=== PATIENT | female | born 1950 ===

== ENCOUNTER 2022-08-26 13:28 | Inpatient (IN) | payer BC ==
[~2022-08-26] VITALS: Ht 172.7 cm; Wt 45.8 kg
[2022-08-26] MEDS ORDERED: MORPHINE SULFATE INJ 2 MG/ml SYRG IV PRN (20:30)
[2022-08-26] MEDS ORDERED: NITROGLYCERIN 0.4 MG SL TAB SL PRN (20:30)
[2022-08-26] MEDS ORDERED: VANCOMYCIN PER PHARMACY 0 MG IV SCH (20:30)
[2022-08-26] MEDS ORDERED: DOCUSATE SOD 100 MG CAP PO PRN (20:30)
[2022-08-26] MEDS ORDERED: ACETAMINOPHEN 325 MG TAB PO PRN (20:30)
[2022-08-26] MEDS ORDERED: ONDANSETRON HCL 4 MG/2 ML VIAL IV PRN (20:30)
[2022-08-26] MEDS ORDERED: DEXTROSE (50%) 50ML SYRG IV PRN (20:30)
[2022-08-26] MEDS ORDERED: MIRT1TAB PO (20:35)
[2022-08-26] MEDS ORDERED: QUET50TA27 PO (20:35)
[2022-08-26] MEDS ORDERED: ATOR40TA52 PO (20:35)
[2022-08-26] MEDS ORDERED: cefTRIAXone 1GM/50ML D5W 50 ML IV SCH (21:00)
[2022-08-26] MEDS: ACCU-CHEK COMFORT CURVE STRIP VI SCH (21:39)
[2022-08-26] MEDS: SODIUM CHLORIDE 0.9% 1,000 ML IV SCH (21:39)
[2022-08-26] MEDS: InsuLIN REG 1unit/0.01ml Soln (100units/ml) SC SCH (21:40)
[2022-08-26 22:00] VITALS: BP 108/56
[2022-08-26] MEDS ORDERED: VANCOMYCIN 1GM/250ML 250 ML IV ONE (22:00)
[2022-08-27 05:00] VITALS: BP 136/66
[2022-08-27 05:48] LABS: Basophils # (auto) 0.1 10 ^3/uL (0-0.2); Eosinophils # (auto) 0.1 10 ^3/uL (0-0.8); Hematocrit 29.7 % (36.0-46.0); Hemoglobin 9.2 g/dL (12.2-16.2)
[2022-08-27 05:51] LABS: Basophils % (auto) 0.5 % (0.0-2.0); Eosinophils % (auto) 0.7 % (0.0-7.0); Lymphocytes # (auto) 1.3 10 ^3/uL (0.4-5.4); Lymphocytes % (auto) 6.3 % (10.0-50.0); Mean Corpuscular Hemoglobin 26.5 pg (28.0-32.0); Mean Corpuscular Hgb Conc. 31.2 g/dL (32.0-36.0); Monocytes # (auto) 1.8 10 ^3/uL (0-1.3); Neutrophils # (auto) 16.8 10 ^3/uL (1.6-8.6); Neutrophils % (auto) 83.5 % (37.0-80.0); Red Blood Cells 3.49 10^6/uL (4.0-5.20); Red Cell Distribution Width 14.3 % (11.8-14.3); White Blood Cell 20.1 10^3/uL (4.4-10.8)
[2022-08-27 06:07] LABS: Calcium 8.9 mg/dL (8.5-10.1); Potassium 4.4 mmol/L (3.5-5.1)
[2022-08-27 06:09] LABS: BUN/Creatinine Ratio 37.3 (10.0-20.0)
[2022-08-27] MEDS: ACCU-CHEK COMFORT CURVE STRIP VI SCH ×4 (06:11→21:37)
[2022-08-27] MEDS: InsuLIN REG 1unit/0.01ml Soln (100units/ml) SC SCH ×4 (06:13→22:00)
[2022-08-27 08:33] VITALS: BP 138/68
[2022-08-27] MEDS ORDERED: cefTRIAXone 1GM/50ML D5W 50 ML IV SCH (09:00)
[2022-08-27] MEDS: SODIUM CHLORIDE 0.9% 1,000 ML IV SCH (09:50)
[2022-08-27] MEDS: MEROPENEM 500MG IVPB 50 ML IV SCH ×2 (10:41→22:44)
[2022-08-27 12:21] VITALS: BP 144/68
[2022-08-27 16:01] LABS: Protein, Urine 42.9 mg/dL (0.0-11.9)
[2022-08-27 16:05] LABS: Urine Amorphous Crystal FEW /hpf (None Seen); Urine Bacteria NONE SEEN /hpf (None Seen); Urine Blood 1+ /uL (Negative); Urine Hyaline Cast FEW /lpf (0 - 2); Urine Mucus FEW (None Seen); Urine WBC 274 /hpf (0 - 5)
[2022-08-27 16:28] VITALS: BP 111/81
[2022-08-27] MEDS: Ensure Enlive Strawberry 8oz Bottle PO SCH (18:38)
[2022-08-27] MEDS: SODIUM BICARBONATE 50ML VIAL 50 ML in SOD CHL 0.45% 1,000 ML IV SCH (19:25)
[2022-08-27 22:00] VITALS: BP 110/46
[2022-08-28 05:00] VITALS: BP 112/50
[2022-08-28] MEDS: ACCU-CHEK COMFORT CURVE STRIP VI SCH ×4 (06:01→21:51)
[2022-08-28] MEDS: InsuLIN REG 1unit/0.01ml Soln (100units/ml) SC SCH ×4 (06:01→21:50)
[2022-08-28 06:13] LABS: Basophils # (auto) 0.1 10 ^3/uL (0-0.2); Basophils % (auto) 0.7 % (0.0-2.0); Eosinophils # (auto) 0.4 10 ^3/uL (0-0.8); Eosinophils % (auto) 2.2 % (0.0-7.0); Hematocrit 28.2 % (36.0-46.0); Hemoglobin 8.7 g/dL (12.2-16.2); Lymphocytes % (auto) 11.7 % (10.0-50.0); Mean Corpuscular Hemoglobin 26.7 pg (28.0-32.0); Mean Corpuscular Hgb Conc. 30.7 g/dL (32.0-36.0); Monocytes # (auto) 1.6 10 ^3/uL (0-1.3); Monocytes % (auto) 9.1 % (0.0-12.0); Neutrophils # (auto) 13.3 10 ^3/uL (1.6-8.6); Neutrophils % (auto) 76.3 % (37.0-80.0); Red Blood Cells 3.25 10^6/uL (4.0-5.20); Red Cell Distribution Width 14.1 % (11.8-14.3); White Blood Cell 17.5 10^3/uL (4.4-10.8)
[2022-08-28 06:41] LABS: Calcium 8.9 mg/dL (8.5-10.1); Potassium 4.2 mmol/L (3.5-5.1)
[2022-08-28] MEDS: Ensure Enlive Strawberry 8oz Bottle PO SCH ×3 (08:30→18:00)
[2022-08-28 09:51] VITALS: BP 98/59
[2022-08-28] MEDS: MEROPENEM 500MG IVPB 50 ML IV SCH ×2 (10:13→21:50)
[2022-08-28] MEDS: SODIUM BICARBONATE 50ML VIAL 50 ML in SOD CHL 0.45% 1,000 ML IV SCH ×4 (10:14→21:00)
[2022-08-28 12:29] VITALS: BP 101/62
[2022-08-28 16:07] VITALS: BP 111/55
[2022-08-28] MEDS ORDERED: VANCOMYCIN 1GM/250ML 250 ML IV ONE (18:00)
[2022-08-28 21:30] VITALS: BP 132/83
[2022-08-29 06:49] LABS: Lymphocytes # (auto) 2.3 10 ^3/uL (0.4-5.4); Neutrophils # (auto) 11.6 10 ^3/uL (1.6-8.6); Red Cell Distribution Width 14.1 % (11.8-14.3)
[2022-08-29 06:52] LABS: Basophils # (auto) 0.1 10 ^3/uL (0-0.2); Basophils % (auto) 0.8 % (0.0-2.0); Eosinophils # (auto) 0.8 10 ^3/uL (0-0.8); Eosinophils % (auto) 5.2 % (0.0-7.0); Hematocrit 28.1 % (36.0-46.0); Hemoglobin 8.8 g/dL (12.2-16.2); Lymphocytes % (auto) 14.5 % (10.0-50.0); Mean Corpuscular Hemoglobin 26.5 pg (28.0-32.0); Mean Corpuscular Hgb Conc. 31.4 g/dL (32.0-36.0); Mean Corpuscular Volume 84.4 fL (80.0-100.0); Monocytes # (auto) 1.2 10 ^3/uL (0-1.3); Monocytes % (auto) 7.6 % (0.0-12.0); Neutrophils % (auto) 71.9 % (37.0-80.0); Nucleated Red Blood Cells % 0.1 %; Red Blood Cells 3.34 10^6/uL (4.0-5.20); White Blood Cell 16.1 10^3/uL (4.4-10.8)
[2022-08-29 07:15] LABS: BUN/Creatinine Ratio 26.5 (10.0-20.0); Calcium 8.4 mg/dL (8.5-10.1); Potassium 3.9 mmol/L (3.5-5.1)
[2022-08-29] MEDS: SODIUM BICARBONATE 50ML VIAL 50 ML in SOD CHL 0.45% 1,000 ML IV SCH ×2 (07:30→18:00)
[2022-08-29] MEDS: Ensure Enlive Strawberry 8oz Bottle PO SCH ×3 (08:47→18:50)
[2022-08-29] MEDS: Glucerna Carbsteady SHAKE Vanilla 8oz PO SCH ×3 (08:47→18:51)
[2022-08-29 09:00] VITALS: BP 134/59
[2022-08-29] MEDS: MEROPENEM 500MG IVPB 50 ML IV SCH (11:25)
[2022-08-29] MEDS: InsuLIN REG 1unit/0.01ml Soln (100units/ml) SC SCH ×2 (11:30→17:00)
[2022-08-29] MEDS: ACCU-CHEK COMFORT CURVE STRIP VI SCH ×2 (12:05→17:29)
[2022-08-29] MEDS ORDERED: AUG875T PO (12:49)
[2022-08-29 17:00] VITALS: BP 114/54
== END 2022-08-29 20:44 | disposition hospice, home (50) | DRG 70 ==
LOC: TELE-WESTW 18:17
PROVIDERS: ADMIT Internal Medicine; ATTEND Internal Medicine
DX: G93.40 Encephalopathy, unspecified (principal); N17.0 Acute kidney failure with tubular necrosis; N39.0 Urinary tract infection, site not specified; E87.1 Hypo-osmolality and hyponatremia; E87.20 Acidosis, unspecified; E87.0 Hyperosmolality and hypernatremia; E87.5 Hyperkalemia; D75.839 Thrombocytosis, unspecified; E11.22 Type 2 diabetes mellitus with diabetic chronic kidney disease; G30.9 Alzheimer's disease, unspecified; F02.80 Dementia in other diseases classified elsewhere, unspecified severity, without behavioral disturbance, psychotic disturbance, mood disturbance, and anxiety; I12.9 Hypertensive chronic kidney disease with stage 1 through stage 4 chronic kidney disease, or unspecified chronic kidney disease; B96.4 Proteus (mirabilis) (morganii) as the cause of diseases classified elsewhere; E78.5 Hyperlipidemia, unspecified; N18.9 Chronic kidney disease, unspecified; Z89.511 Acquired absence of right leg below knee; Z83.3 Family history of diabetes mellitus; Z86.73 Personal history of transient ischemic attack (TIA), and cerebral infarction without residual deficits
CPT/HCPCS: 36415; 76775; 80048; 80202; 81001; 82570; 82962; 84156; 84300; 85025; 87040; 87081; 87086; 97110; 97163; 97530; G0378; J1815; J2185